=== PATIENT | female | born 1985 | race American Indian/Alaskan Native ===

== ENCOUNTER 2019-03-21 17:31 | Emergency (ER) | payer MEDICAID, OTHER ==
[~2019-03-21] VITALS: Ht 162.6 cm; Wt 72.7 kg
[~2019-03-21 17:31] MED LIST: ONDA4TAB12 PO
[2019-03-21] MEDS ORDERED: PENI250T2 PO (18:04)
[2019-03-21] MEDS ORDERED: IBUP-1984 PO (18:04)
[2019-03-21] MEDS ORDERED: bupivacaine 0.25%/epinephrine 1:200,000 inj (contains preserv. MDV) IJ ONE (18:05)
[2019-03-21] MEDS ORDERED: penicillin V potassium 500mg tablet PO ONE (18:25)
[2019-03-21] MEDS ORDERED: acetaminophen 325mg tablet PO ONE ×2 (18:25→18:35)
[2019-03-21 18:39] VITALS: BP 135/90
== END 2019-03-21 18:43 | disposition home or self-care (01) ==
LOC: ER 17:32
DX: K04.7 Periapical abscess without sinus (principal); F41.9 Anxiety disorder, unspecified; F15.90 Other stimulant use, unspecified, uncomplicated; Z98.890 Other specified postprocedural states; Z79.899 Other long term (current) drug therapy
CPT/HCPCS: 64400; 99284

== ENCOUNTER 2019-03-21 22:37 | Emergency (ER) | payer MEDICAID, OTHER ==
[~2019-03-21] VITALS: Ht 162.6 cm; Wt 71.0 kg
[~2019-03-21 22:37] MED LIST changes: +IBUP-1984 PO; +PENI250T2 PO
[2019-03-21 22:40] VITALS: BP 151/93
[2019-03-21] MEDS ORDERED: ketorolac tromethamine 15mg/ml inj. IM ONE (22:50)
== END 2019-03-21 23:01 | disposition home or self-care (01) ==
LOC: ER 22:38
DX: K08.89 Other specified disorders of teeth and supporting structures (principal); K03.81 Cracked tooth; F41.9 Anxiety disorder, unspecified; Z98.890 Other specified postprocedural states
CPT/HCPCS: 96372; 99283; J1885

== ENCOUNTER 2022-04-06 22:02 | Emergency (ER) | payer SELFPAY ==
[~2022-04-06 22:02] MED LIST changes: -IBUP-1984 PO; -PENI250T2 PO
== END 2022-04-06 23:25 | disposition left against medical advice (07) ==
LOC: ER 22:03
DX: Z00.8 Encounter for other general examination (principal); Z53.21 Procedure and treatment not carried out due to patient leaving prior to being seen by health care provider

== ENCOUNTER 2022-10-02 11:39 | Emergency (ER) | payer MEDICAID ==
[~2022-10-02] VITALS: Ht 160 cm; Wt 68.0 kg
[2022-10-02 12:02] LABS: BASOPHILS % (AUTO) 0.5 % (0-1); EOSINOPHILS % (AUTO) 0.9 % (0-6); HEMATOCRIT 45.6 % (35.0-45.0); HEMOGLOBIN 15.5 g/dl (12.0-16.0); LYMPHOCYTES # (AUTO) 1.6 X10'3 (1.1-4.8); LYMPHOCYTES % (AUTO) 30.3 % (21-51); MEAN CORPUSCULAR HEMOGLOBIN 32.4 PG (27.0-31.0); MEAN CORPUSCULAR HGB CONC 34.1 g/dL (33.0-36.5); MEAN CORPUSCULAR VOLUME 94.9 FL (78-98); MEAN PLATELET VOLUME 7.2 FL (7.4-10.4); MONOCYTES # (AUTO) 0.5 X10'3 (0-0.9); MONOCYTES % (AUTO) 9.1 % (2-12); NEUTROPHILS # (AUTO) 3.1 X10'3 (1.8-7.7); NEUTROPHILS % (AUTO) 59.2 % (42-75); PLATELET COUNT 312 X10'3 (140-440); RED CELL DISTRIBUTION WIDTH 13.8 % (11.5-14.5); WHITE BLOOD COUNT 5.2 X10'3 (4.5-11.0)
[2022-10-02 12:14] LABS: URINE HCG NEGATIVE (NEG)
[2022-10-02 12:25] LABS: CHLORIDE 103 MMOL/L (99-107); POTASSIUM 3.7 MMOL/L (3.5-5.1); SODIUM 140 MMOL/L (135-145)
[2022-10-02 12:27] LABS: CLARITY,URINE SLIGHTLY CLOUDY (Clear); COLOR,URINE YELLOW (Yellow); GLUCOSE, URINE NEGATIVE (Neg); KETONES,URINE NEGATIVE (Neg); LEUKOCYTE ESTERASE ,URINE NEGATIVE (Neg); NITRITES, URINE NEGATIVE (Neg); OCCULT BLOOD,URINE NEGATIVE (Neg); PROTEIN,URINE NEGATIVE (Neg); UROBILINOGEN,URINE 0.2 E.U/dL (0.2-1.0)
[2022-10-02 12:31] LABS: UA COLLECTION TYPE CLN CATCH MIDSTREAM
[2022-10-02 12:31] LABS: ALANINE AMINOTRANSFERASE 28 U/L (12-78); ALBUMIN 4.3 G/DL (3.4-5.0); ALBUMIN/GLOBULIN RATIO 1.3 (1.1-1.5); ALKALINE PHOSPHATASE 60 IU/L (46-116); ANION GAP 7 (8-16); ASPARTATE AMINO TRANSFERASE 13 U/L (10-37); BLOOD UREA NITROGEN 12 MG/DL (7-18); BUN/CREATININE RATIO 16.4 (10.0-20.0); CALCIUM 9.3 MG/DL (8.5-10.1); CREATININE 0.73 MG/DL (0.40-0.90); GLUCOSE 139 MG/DL (70-104); LIPASE 52 U/L (73-393); TOTAL CARBON DIOXIDE 30.1 MMOL/L (24-32); TOTAL PROTEIN 7.5 G/DL (6.4-8.2); eGFR 89 ML/MIN
[2022-10-02 12:33] LABS: BACTERIA,URINE FEW /HPF (Neg); RBC,URINE NONE SEEN /HPF (0-2); WBC,URINE 0-4 /HPF (0-4)
[2022-10-02 12:34] LABS: MUCUS STRANDS MODERATE /LPF (Neg); SQUAMOUS EPITHELIAL CELL,UR MANY /LPF (FEW)
[2022-10-02 12:51] VITALS: BP 114/81
[2022-10-02] MEDS ORDERED: PANT20TA18 PO (13:38)
[2022-10-02] MEDS ORDERED: mag hydrox/Alum hydrox/simeth 30ml oral suspension PO ONE (13:40)
[2022-10-02] MEDS ORDERED: pantoprazole 40mg Tablet.DR PO ONE (13:40)
[2022-10-02] MEDS ORDERED: LIDOcaine Viscous 15ml cup MM ONE (13:40)
== END 2022-10-02 13:50 | disposition home or self-care (01) ==
LOC: ER 11:42
DX: K29.00 Acute gastritis without bleeding (principal); F41.9 Anxiety disorder, unspecified; F32.9 Major depressive disorder, single episode, unspecified; Z79.899 Other long term (current) drug therapy
CPT/HCPCS: 36415; 80053; 81001; 81025; 83690; 85025; 99283

== ENCOUNTER 2024-02-29 17:42 | Emergency (ER) | payer MEDICAID, OTHER ==
[~2024-02-29] VITALS: Ht 160 cm; Wt 68.0 kg
[~2024-02-29 17:42] MED LIST changes: +ONDA-243 PO; -ONDA4TAB12 PO; +PANT20TA18 PO
[2024-02-29 17:46] VITALS: BP 140/95; PULSE 77; RESP 16; O2SAT 98
[2024-02-29 19:26] VITALS: TEMP 98.6
[2024-02-29] MEDS: LIDOcaine 1% 30ml preserv. free vial SQ STA (19:26)
== END 2024-02-29 19:31 | disposition home or self-care (01) ==
LOC: ER 17:43
DX: S61.211A Laceration without foreign body of left index finger without damage to nail, initial encounter (principal); F41.9 Anxiety disorder, unspecified; F12.90 Cannabis use, unspecified, uncomplicated; Z79.899 Other long term (current) drug therapy; W45.8XXA Other foreign body or object entering through skin, initial encounter; Y93.89 Activity, other specified; Y92.89 Other specified places as the place of occurrence of the external cause; Y99.8 Other external cause status
CPT/HCPCS: 12001; 99282; J7030; A6258